=== PATIENT | male | born 1945 ===

== ENCOUNTER → 2021-11-21 | Day surgery (SDC) | payer MEDICARE, OTHER ==
[2021-11-16 13:47] VITALS: BP 149/74
[2021-11-21] VITALS (9 sets, daily range): BP systolic 117–164; BP diastolic 49–77
[~2021-11-21] MED LIST: CRUTCHES DEVI; ELIQUIS5 M1 PO; FERROUS SULFAT325 MG PO; JANUVIA25 MG PO; LOSARTAN POTASS25 M1 PO; METFORMIN HYD1000 MG PO; ULTRAM50 MG PO; VIBRAMYCIN100 MG PO; WHEELCHAIR DEVI
[2021-11-22 13:07] LABS: ACID FAST SPEC PROCESSING Tissue Grinding (.)
== END | disposition home or self-care (01) ==
LOC: SDC 11-16 13:15
PROVIDERS: ATTEND Podiatrist
DX: M21.6X2 Other acquired deformities of left foot (principal); M19.072 Primary osteoarthritis, left ankle and foot; Z96.653 Presence of artificial knee joint, bilateral; Z90.89 Acquired absence of other organs; I10 Essential (primary) hypertension; E11.9 Type 2 diabetes mellitus without complications; K21.9 Gastro-esophageal reflux disease without esophagitis; Z86.711 Personal history of pulmonary embolism; Z79.899 Other long term (current) drug therapy; Z20.822 Contact with and (suspected) exposure to COVID-19